=== PATIENT | male | born 1940 | race Caucasian/White ===

== ENCOUNTER 2019-09-25 08:26 | Emergency (ER) | payer SELFPAY ==
[~2019-09-25] VITALS: Ht 165.1 cm; Wt 98.4 kg
[2019-09-25 08:29] VITALS: Ht 165.1 cm; Wt 98.4 kg
[2019-09-25 09:37] VITALS: BP 140/81
== END 2019-09-25 09:37 | disposition home or self-care (01) ==
LOC: ED 08:26
DX: M47.9 Spondylosis, unspecified (principal)